=== PATIENT | male | born 1945 | race Caucasian/White ===

== ENCOUNTER 2025-06-06 12:55 | Emergency (ER) | payer MEDICARE, BC ==
[~2025-06-06] VITALS: Ht 160 cm; Wt 77.1 kg
[2025-06-06 13:09] VITALS: BP 168/91
[2025-06-06 14:12] VITALS: BP 168/91; O2SAT 97
== END 2025-06-06 14:13 | disposition home or self-care (01) ==
LOC: ER 12:55
DX: H11.32 Conjunctival hemorrhage, left eye (principal); I25.10 Atherosclerotic heart disease of native coronary artery without angina pectoris; E11.9 Type 2 diabetes mellitus without complications; E78.5 Hyperlipidemia, unspecified; Z87.442 Personal history of urinary calculi; Z95.1 Presence of aortocoronary bypass graft
CPT/HCPCS: A4606; A4663